=== PATIENT | female | born 1955 | race Caucasian/White ===

== ENCOUNTER → 2019-10-14 12:03 | Outpatient (BNVA) | payer MEDICARE, SELFPAY | PROVIDERS: Family Provider Nurse Practitioner; PCP Nurse Practitioner; Visit Provider Nurse Practitioner | DX: I10 Essential (primary) hypertension (principal); Z12.31 Encounter for screening mammogram for malignant neoplasm of breast | CPT/HCPCS: 80053; 80061; 81001; 81003; 85025 ==

== ENCOUNTER → 2020-04-13 11:11 | Outpatient (BNVA) | payer MEDICARE, SELFPAY | PROVIDERS: Family Provider Nurse Practitioner; PCP Nurse Practitioner; Visit Provider Nurse Practitioner | DX: I10 Essential (primary) hypertension (principal) | CPT/HCPCS: 80053; 80061; 84443 ==

== ENCOUNTER → 2020-07-27 16:55 | Outpatient (BNVA) | payer MEDICARE, SELFPAY | PROVIDERS: Family Provider Nurse Practitioner; PCP Nurse Practitioner; Visit Provider Nurse Practitioner | DX: I10 Essential (primary) hypertension (principal); I27.20 Pulmonary hypertension, unspecified; I48.91 Unspecified atrial fibrillation | CPT/HCPCS: 80053; 80061; 84443; 85025 ==

== ENCOUNTER 2020-09-22 23:22 | Emergency (ER) | payer MEDICARE, SELFPAY ==
[2020-09-22 23:27] VITALS: BP 178/88; PULSE 81; RESP 18; TEMP 36; O2SAT 100; BMI 29.1
--- NOTE | 2020-09-23 00:06 | XRR_ITS ---
PROCEDURE INFORMATION: Exam: XR Left Ankle Exam date and time: 09/23/2020 12:16 AM Age: 65 years old Clinical indication: Injury or trauma; Fall; Blunt trauma; Ankle; Left; Injury date: 09/23/20; Additional info: Injury, felt a pop. Pain in lt ankle with swelling TECHNIQUE: Imaging protocol: XR Left ankle. Views: 3 or more views. COMPARISON: No relevant prior studies available. FINDINGS: Bones/joints: There is a trimalleolar fracture of the left ankle. There is a mild posterior subluxation of the talus. Soft tissues: Normal. XR/XR ankle LT min 3V* [id number] IMPRESSION: Acute trimalleolar fracture of the left with mild posterior subluxation of the talus.
--- NOTE | 2020-09-23 00:23 | ED_ITS ---
HPI - Extremity Problem General: Chief complaint: Extremity Injury, Lower Stated complaint: left ankle injury Time Seen by Provider: 09/23/20 00:23 Source: patient Mode of arrival: ambulatory Limitations: no limitations History of Present Illness: HPI Narrative: 65-year-old female comes in today with injury to the left lower leg/ankle. Patient states she was getting up to get out of a rocking chair and a grandchild was playing with her and she missed stepped causing her to stepped awkwardly onto her ankle and feeling a significant pop. Patient appears well. Patient appears in moderate pain at rest. MD Complaint: extremity pain Review of Systems General: Reports: 10 or more systems reviewed and unremarkable except in HPI and below Musc: Reports: extremity pain [facility] ED PFSH: Medical History (Updated 09/23/20 @ 00:45 by ALEX Cheatham) AF (atrial fibrillation) ASD (atrial septal defect) Essential (primary) hypertension Pulmonary hypertension, unspecified Situational anxiety Surgical History History of heart valve repair 05/21/2017 Status post laser cataract surgery Both eyes 2012 Family History Brother Heart disease Sister Thyroid condition Lymphoma Daughter Melanoma Social History Smoking and tobacco status: never smoked Smoking risk assessment/counseling performed?: No Alcohol intake: current Alcohol intake frequency: holidays/special occasions only Desire information about alcohol rehabilitation?: No Counseling given: No Desire information about substance/drug rehabilitation?: No Counseling given: No Adopted: No Caregiver/support person: No Lives independently: Yes Household members: spouse Housing: House Marital status: Number of children: 3 Number of grandchildren: 6 Highest education level completed: High School Graduate service: No Current occupational status: unemployed Current occupational exposures/hazards: No Pets and animals: No History of recent travel: No Sexually active: Yes Current gender identity: Female Financial difficulty paying for basics: Not Very Hard Physical Exam Const: COMMON NORMALS: no acute distress and patient oriented x3 GENERAL APPEARANCE: cooperative HENMT: COMMON NORMALS: normocephalic and Normal external nose present HEAD & SCALP: normal to inspection and normocephalic NOSE: Normal external nose present MOUTH: Normal oral and palatal mucosa present Eye: GENERAL EYE: appearance normal, both eyes and all related structures Neck/C-Spine: COMMON NORMALS: full ROM Chest: COMMONS NORMALS: normal inspection of the chest Resp: COMMON NORMALS: normal respiratory effort EFFORT & INSPECTION: Yes able to speak in complete sentences Cardio: COMMON NORMALS: regular rate and regular rhythm RATE: regular rate RHYTHM: regular rhythm GI: COMMON NORMALS: non-tender Back/Pelvis: COMMON NORMALS: thoracic and lumbar spine normal to inspection Extremity: NARRATIVE EXTREMITY EXAM: Significant swelling and ecchymosis to the left lower extremity. Pulses are intact. Prompt capillary refill is noted. Neuro: COMMON NORMALS: patient oriented x3 and moves all extremities Psych: COMMON NORMALS: mental status grossly normal and cooperative Skin: COMMON NORMALS: no rashes or lesions noted GENERAL SKIN EXAM: no rashes or lesions noted Procedures Orthopedic Splinting/Casting Injury #1: Side: left Lower Extremity Injury Location: ankle Lower Extremity Immobilizer: posterior splint (posterior splint with stirrup support) Other Orthopedic Equipment: crutches Course ED course: 1240, discussed with Dr. Yoon regarding patient's abnormal ankle x- ray. We note a trimalleolar fracture with minimal subluxation. He recommended splinting in the posterior medial lateral splint and following up with orthopedic surgeon. Vital Signs: Vital signs: Vital Signs Temperature 96.8 F L 09/22/20 23:27 Pulse Rate 81 09/22/20 23:27 Respiratory Rate 18 09/22/20 23:27 Blood Pressure 178/88 09/22/20 23:27 Pulse Oximetry 100 09/22/20 23:27 MDM - Extremity (Nontraumatic) MDM Narrative: Medical decision making narrative: Patient comes in today with injury to the left lower extremity. Patient appears well. Patient appears no acute distress. Respirations are even lungs are clear to auscultation. Noticeable deformity and swelling is noted to the left ankle. Distal pulses and cap refill are intact. Differential diagnosis includes dislocation, fracture, sprain. X-ray notes a trimalleolar fracture. Reviewed the exam with Dr. Yoon who recommended a PML splint and follow-up with orthopedics. Patient was given hydrocodone for pain. Case management will be consulted for follow-up appointment. Patient and family both reported understanding. Discharge Plan Discharge Patient Disposition: Home Clinical Impression: Closed trimalleolar fracture Qualifiers: Encounter type: initial encounter Laterality: left Qualified Code(s): S82.852A - Displaced trimalleolar fracture of left lower leg, initial encounter for closed fracture Condition: Stable Prescriptions: [place] 7.5-325 mg tablet 1 tab PO Q6H PRN (Reason: pain) Qty: 20 RF: 0 No Action nitroglycerin [Nitrostat] 0.4 mg tablet, sublingual 0.4 mg SUBLINGUAL ONCE PRNRF: 0 lisinopril 5 mg tablet 5 mg PO QDAY Qty: 90 RF: 0 furosemide 40 mg tablet 40 mg PO QAM Qty: 90 RF: 0 potassium chloride 20 mEq tablet extended release 20 meq PO QDAY Qty: 90 RF: 0 metoprolol succinate [Toprol XL] 25 mg tablet extended release 24 hr 12.5 mg PO DAILY Qty: 90 RF: 0 Eliquis 5 mg tablet 5 mg PO BID Qty: 180 RF: 0 Discharge Orders: Discharge ED (Routine); Ordered 09/23/20 Ordered By: Modesto Casey Referrals: Rosa Briseno, WALDEMAR [Primary Care Provider] - Discharge Diet: Usual diet Discharge Activity: Limit activity as instructed and Use walker/crutches as instructed Patient Instructions: Ankle Fracture (ED) Activity Restrictions/Additional Instructions: You will need to follow-up with orthopedic surgeon next week. Case management has been consulted to assist with your appointment. You can call the orthopedics office to arrange appointment but you will still receive a call from case management on Friday. Drink plenty of water with medication. Hydrocodone is a narcotic and may cause constipation. It is recommended to use a stool softener and drink a diet high in fresh fruits and vegetables to help prevent constipation. Follow-up with primary care as needed. Return to the emergency department for new concerns. Coding Level of Care Code ED Exterior Work Helper for Fabienne Benitez Exam Comprehensive
[2020-09-23] MEDS: HYDROcodone-acetaminophen 10-325 mg Tablet 1 TAB PO (00:38)
[2020-09-23] MEDS: HYDROcodone-acetaminophen 7.5-325 mg Tablet 1 TAB PO (02:03)
--- NOTE | 2020-09-23 02:13 | PC.NURSE ---
Posterior short leg splint with sugar tong applied to left ankle/foot. Patient tolerated it well but unable to bend foot at 90 degree angle.
[2020-09-23 02:14] VITALS: BP 148/93; PULSE 82; RESP 17; TEMP 36.6; O2SAT 100
--- NOTE | 2020-09-25 09:44 | DCPLANNER ---
information systems security manager had message to schedule a follow up appointment for patient with ortho. information systems security manager called the ortho clinic, spoke with Indira, gave clinic patients information. information systems security manager was told that patients information would be printed and reviewed. Clinic will call patient with appointment information.
--- NOTE | 2020-09-26 07:30 | DCPLANNER ---
Patient has a follow up appointment scheduled for Saturday, September 26, 2020 at 9:[address] Cruz. Clinic will call patient with appointment information.
--- NOTE | 2020-10-27 14:55 | DCPLANNER ---
Patient had a follow up appointment scheduled for 09.26.20 with ortho - patient did attend appointment.
== END 2020-09-23 02:18 | disposition home or self-care (01) ==
PROVIDERS: Emergency Provider Nurse Practitioner Family; PCP Nurse Practitioner
DX: S82.852A Displaced trimalleolar fracture of left lower leg, initial encounter for closed fracture (principal); Z79.01 Long term (current) use of anticoagulants; I48.91 Unspecified atrial fibrillation; I10 Essential (primary) hypertension; W18.40XA Slipping, tripping and stumbling without falling, unspecified, initial encounter
CPT/HCPCS: 12345; 29515; 73610; 99281; 99283; E0114

== ENCOUNTER → 2020-09-26 09:04 | Outpatient (BNVA) | payer MEDICARE, SELFPAY | PROVIDERS: PCP Nurse Practitioner; Referring Provider Nurse Practitioner Family; Visit Provider Podiatrist Foot & Ankle Surgery | DX: S82.852A Displaced trimalleolar fracture of left lower leg, initial encounter for closed fracture (principal); W18.40XA Slipping, tripping and stumbling without falling, unspecified, initial encounter; Z46.89 Encounter for fitting and adjustment of other specified devices; S82.852D Displaced trimalleolar fracture of left lower leg, subsequent encounter for closed fracture with routine healing; X58.XXXD Exposure to other specified factors, subsequent encounter | CPT/HCPCS: 73610; 87635; L4361 ==

== ENCOUNTER 2020-09-26 10:16 | Outpatient (CLI) | payer MEDICARE, SELFPAY | END 2020-09-26 10:17 | disposition home or self-care (01) | LOC: SPT 10:17 | PROVIDERS: PCP Nurse Practitioner; Visit Provider Podiatrist Foot & Ankle Surgery | DX: Z46.89 Encounter for fitting and adjustment of other specified devices (principal); S82.852D Displaced trimalleolar fracture of left lower leg, subsequent encounter for closed fracture with routine healing; X58.XXXD Exposure to other specified factors, subsequent encounter | CPT/HCPCS: 87635; L4361 ==

== ENCOUNTER 2020-09-29 06:53 | Day surgery (SDC) | payer OTHER, SELFPAY ==
[2020-09-28 12:37] VITALS: BMI 30.1
[2020-09-29] VITALS (7 sets, daily range): BP systolic 131–180; BP diastolic 70–88; PULSE 66–95; RESP 15–20; TEMP 36.6–37.1; O2SAT 94–100
--- NOTE | 2020-09-29 | SCC_ITS ---
Procedure Done: Open reduction internal fixation left trimalleolar ankle fracture. CPT code 14881 117 seconds of fluoroscopic guidance, for a cumulative dose of 2.9 mGy, was provided to Dr. Cruz by the radiology department. C-arm images of the LEFT ankle were saved for the patient's permanent record. [facility]
[2020-09-29] MEDS: sodium chloride 0.9% 1,000 ML 30 ML IV (08:09)
--- NOTE | 2020-09-29 08:23 | ANES.PREANE2 ---
Pre-Anesthetic Assessment Pre-Anesthetic Assessment: Height/Weight: Height 1.65 m Weight 82.1 kg Temp Pulse Resp BP Pulse Ox 98.1 F 79 18 137/74 98 09/29/20 07:24 09/29/20 07:24 09/29/20 07:24 09/29/20 07:24 09/29/20 07:24 Preop Diagnosis: Left trimalleolar ankle fracture Proposed Procedure: Operation Date: 09/29/20 09:10 Proposed Procedures [place] [address] S82.852A(Left) - Gm Cruz, DPM Was Beta Gia taken within 24 hours: Yes Last intake: Intake Last Liquid Date 09/28/20 Last Liquid Time 22:00 Last Solid Date 09/28/20 Last Solid Time 21:30 Social: Social History: No alcohol and No tobacco Exam: Pre-Anes Outpt Exam: alert, oriented x 3 and clear to auscultation bilaterally Airway: Submandibular: WNL Cervical ROM: WNL MP: 2 Dentition: Full Pulmonary: Pulmonary: None reported CV/HEM: CV/HEM: HTN Comments: ASD repair, PHTN : : None reported Hepatic: Hepatic: None reported GI: GI: None reported Metabolic: Metabolic: None reported Musc/skel: Musc/skel: None reported Neuropsych: Neuropsych: None reported Anesthetic Plan: ASA status: 3 Anesthesia: General and Regional (specify below) Other: Popliteal blk Risk of > 500 ml blood loss (7ml/kg in children): No Meds/Allergies Current Medications: Current Medications Generic Name Dose Route Start Last Admin Trade Name Freq PRN Reason Stop Dose Admin Sodium Chloride 1,000 mls @ 30 ml s/hr 09/29/20 08:00 09/29/20 08:09 Sodium Chloride 0.9% IV 09/30/20 07:59 30 mls/hr .Q24H MELODY Administration PFSH Anesthesia PFSH: Medical History AF (atrial fibrillation) ASD (atrial septal defect) Essential (primary) hypertension Pulmonary hypertension, unspecified Situational anxiety Surgical History History of heart valve repair 05/21/2017 Status post laser cataract surgery Both eyes 2013 Family History Brother Heart disease Sister Thyroid condition Lymphoma Daughter Melanoma Social History Smoking and tobacco status: never smoked Smoking risk assessment/counseling performed?: No Alcohol intake: current Alcohol intake frequency: holidays/special occasions only Desire information about alcohol rehabilitation?: No Counseling given: No Desire information about substance/drug rehabilitation?: No Counseling given: No Adopted: No Caregiver/support person: No Lives independently: Yes Household members: spouse Housing: House Marital status: Number of children: 3 Number of grandchildren: 6 Highest education level completed: High School Graduate service: No Current occupational status: unemployed Current occupational exposures/hazards: No Pets and animals: No History of recent travel: No Sexually active: Yes Current gender identity: Female Financial difficulty paying for basics: Not Very Hard Data Anesthesia Cardiac Studies: No Data to Display
[2020-09-29] MEDS: midazolam 1 mg/mL INJ 5 ML 5 MG IVP (08:55)
--- NOTE | 2020-09-29 09:02 | W.PM.OPSUD ---
Surgery/Procedure H&P Update DATE OF PROCEDURE: September 29, 2020 DATE H&P PERFORMED: 08/30/20 H&P UPDATE INFORMATION: I have reviewed H&P completed within last 30 days, I have examined patient prior to procedure, No changes to prior documentation and H&P is in [facility] EMR on date indicated PREOP DIAGNOSIS: Left trimalleolar ankle fracture PLANNED PROCEDURE: Operation Date: 09/29/20 09:10 Proposed Procedures [place] [address] S82.852A(Left) - Gm Cruz DPM
--- NOTE | 2020-09-29 09:02 | PM.OP ---
Operative Report Date of procedure: September 29, 2020 Pre-op Diagnosis: Left trimalleolar ankle fracture Post-op diagnosis: same Post-op Findings: Displaced left trimalleolar ankle fracture. Procedure Done: Open reduction internal fixation left trimalleolar ankle fracture. CPT code 18819 Implants: Arthrex anatomical fibular plate. Arthrex 4.0 FT screw x2, Arthrex locking and nonlocking 3.0 millimeter screws at distal fibular plate, Arthrex 3.5 mm locking screws at proximal fibular plate. 2-0 Vicryl, 4-0 Vicryl, 4-0 nylon, skin toni. Specimens removed/disposition: None none Pathology: none sent Surgeon: Gm Cruz D.P.M. Ecosystem Ecology Professor: Aaron Anesthesia: General Estimated blood loss: Less than 10 mL Tourniquet time: See intraoperative documentation IV fluids: None Urine output: None Complications: None Findings: None Condition: stable Disposition: PACU Brief History: Ms. Escoto is a pleasant 65-year-old female who sustained a left trimalleolar ankle fracture at home, tripped over a rug. She has a posterior malleolus fracture that is greater than 30% of the ankle mortise with displacement, displaced fibular fracture and medial malleolus fracture. I discussed the radiographic and clinical findings and implications with patient and her at length and recommended open reduction and internal fixation of her left ankle trimalleolar fracture for stability, rigid internal fixation, anatomical alignment and capability of early range of motion postoperatively. Risks include pain, bleeding, numbness, infection, hardware failure, hardware irritation, delayed union, malunion, damage to adjacent soft tissue structures, the high likelihood of posttraumatic arthritis as a result of this injury even with anatomical reduction and internal fixation. Numbness, swelling, bruising, surgical site dehiscence, infection and need for further surgical intervention. Patient was interviewed preoperatively, informed consent is signed, I initialed patient's left leg, patient wishes to proceed and is aware of complications and risks. No guarantees written, expressed or implied. Procedure: Under mild sedation the patient was brought to the operating room and placed on the operating table in supine position. Of note patient had a popliteal block to the left lower extremity per anesthesia preoperatively. Timeout was performed. Anesthesia was then administered by the anesthesia service. 5 cc of 0.5% Marcaine plain utilized to block the saphenous nerve at the left lower extremity prior to scrubbing. Well-padded pneumatic tourniquet applied to the high calf on the left lower extremity. The left lower remedy was then scrubbed, prepped and draped utilizing normal aseptic technique. Left lower extremity was then examined a weighted utilizing a Esmarch bandage and the tourniquet was inflated to 250 mmHg. Attention was directed to the left ankle which was dorsiflexed and plantarflexed, utilizing traction distally and exaggerating the mechanism of injury followed by reverse mechanism of injury reduction the ankle mortise was inspected utilizing fluoroscopy both AP, mortise and lateral views. I was able to appreciate migration of the posterior fragment distally level with ankle mortise. After checking reduction noting this to be acceptable I proceeded with the patient in supine position. Palpation directly to the lateral malleolus at the distal tip this was marked with a skin marker with a linear incision proximal approximately 10 cm in length. Skin incision was made at the lateral malleolus utilizing a #15 blade. Dissection was carried down through subcutaneous tissue to the level of the periosteum utilizing blunt and sharp technique. Care was taken to retract and preserve neurovascular and tendinous structures. All bleeders were ligated and cauterized as necessary. The peroneal tendons were retracted posteriorly after inspection no tears appreciated. Utilizing a fresh 15 blade periosteal incision was performed, fracture was distracted utilizing [id number] reduction forceps at the lateral malleolus and evacuated of hematoma with curette, browns and saline flush. Fracture was reduced and temporarily stabilized utilizing [id number] reduction forceps followed by fixation of the distal fibula utilizing a anatomical fibular plate and standard AO technique. Distal plate was filled utilizing a combination of locking and nonlocking Arthrex 3.0 millimeter screws followed by fixation of the proximal plate utilizing locking 3.5 millimeter screws with excellent bony apposition and compression noted. Fibula is out to length and the rotated this was confirmed with direct visitation as well as intraoperative fluoroscopy in all 3 views. Incision site was flushed with copious amounts of sterile saline solution. Attention was then directed to the medial malleolus where a percutaneous screw fixation was performed utilizing Arthrex 4.0 mm headless compression screw x2 in parallel fashion with reduction of the medial malleolus performed in a closed fashion and fixation noted to be excellent with excellent bony compression and positioning of fracture fragment and congruent ankle mortise on the AP and lateral as well as oblique view appreciated. Next a lateral view was utilized to confirm reduction of the posterior malleolus fracture this was accomplished utilizing ligamentotaxis. Posterior malleolus fracture was fixated utilizing standard AO technique from an anterior to posterior fashion utilizing lag technique with a 4.0 mm partially-threaded cannulated headed screw. Excellent bony apposition compression noted and fixation noted to be acceptable on AP, mortise and lateral views not to violate the ankle mortise. Incision sites were flushed with copious amounts of sterile saline solution. Lateral incision periosteum was reapproximated utilizing 2-0 Vicryl, subcutaneous tissue closed utilizing 4-0 Vicryl and skin reapproximated utilizing skin toni. Percutaneous incision at the anterior ankle and medial were reapproximated utilizing 4-0 nylon. Incision sites were dressed with Adaptic, sterile 4 x 4, Kerlix and Daryl wrap followed by application of cam boot with ankle in neutral position. Tourniquet was deflated and a prompt hyperemic response was noted to the distal digits of the left lower extremity. Patient tolerated the procedure well and was transferred to the PACU with vital signs stable and vascular status intact. Following a period of postoperative monitoring she will be discharged home is to remain strict nonweightbearing elevate her left foot at all times while at rest. She has instructions in specific detail on discharge paperwork as well as follow-up. Was also provided my cell phone numbers to contact me with any postoperative questions or concerns.
--- NOTE | 2020-09-29 09:04 | ANES.PROC ---
Anesthesia Procedures Procedure/Date: 09/29/20 Nerve Block ^: Nerve Block 1: Main Anesthesia: general anesthesia Time Out Performed: Yes Consent: requested by attending/covering physician, from patient, risks and benefits reviewed and patient agrees to proceed Nerve block location: popliteal (left) Anesthesia monitors applied: pulse oximetry, EKG, BP cuff and oxygen Nerve block position: lateral Anesthetic Used: ropivicaine 0.5% and with epi Amount of anesthesia used (mL): 30 Ultrasound used to: recognize landmarks Nerve Stimulator Used?: No Interscalene/Femoral BLK: 4 stimuplex 21 g needle used for position and inplane approach and visualize local anesthetic spread Injection: neg aspiration of heme Patient Tolerated Procedure: well Complications: none
--- NOTE | 2020-09-29 11:30 | XR_ITS ---
WS: [id number] Left ankle, 3 views, 09/29/2020 Clinical Data: post op Comparison: Left ankle, 09/26/2020. Findings: There is a lateral plate applied to the distal fibula with multiple orthopedic screws. There are obli que screws reducing the medial malleolar fracture. There is a transverse screw across the distal tibi a. Surgical toni are adjacent to the lateral subcutaneous tissue. XR/XR ankle LT min 3V* [id number] Impression: Internal fixation of trimalleolar fracture.
--- NOTE | 2020-09-29 11:40 | SUR.PHASEI ---
PT AWAKES AND ORAL AIRWAY OUT PT QUICKLY BACK TO SLEEP WITH GOOD RESP EFFORT NOTED. VSS LT FOOT IN BOOT DRESSING D/I WITH DISTAL TOES PINK WITH CAP REFILL LESS THAN 3 SECONDS.
--- NOTE | 2020-09-29 11:50 | SUR.PHASEII ---
Dr. Cruz requested that I give pt norco 10-325 mg upon arrival to phase II of PACU.
[2020-09-29] MEDS: HYDROcodone-acetaminophen 10-325 mg Tablet 1 TAB PO (12:13)
--- NOTE | 2020-09-29 12:47 | ANE.PACU2 ---
Inpatient post-anesthesia follow up: Airway intact: Yes Vital signs: Temperature 98.8 F Pulse Rate 88 Respiratory Rate 18 Blood Pressure 149/75 Pulse Oximetry 94 Oxygen Delivery Me thod Room Air Oxygen Flow Rate 8 Fraction of Inspir ed Oxygen Hydration adequate: Yes Nausea and vomiting: No Pain level: 2 Mental status: Baseline
== END 2020-09-29 13:11 | disposition home or self-care (01) ==
PROVIDERS: PCP Nurse Practitioner; Visit Provider Podiatrist Foot & Ankle Surgery
PROC: (CPT 27823; principal; 2020-09-29 09:10)
DX: S82.852A Displaced trimalleolar fracture of left lower leg, initial encounter for closed fracture (principal); X58.XXXA Exposure to other specified factors, initial encounter; I10 Essential (primary) hypertension
CPT/HCPCS: 27823; 12345; 64450; 73610; 76000; 96374; C1713; J0330; J0690; J2250; J2405; J2704; J2795; J3010; J3490; J7030

== ENCOUNTER → 2020-10-13 14:47 | Outpatient (BNVA) | payer OTHER, SELFPAY | PROVIDERS: PCP Nurse Practitioner; Visit Provider Podiatrist Foot & Ankle Surgery | DX: S82.852A Displaced trimalleolar fracture of left lower leg, initial encounter for closed fracture (principal); X58.XXXA Exposure to other specified factors, initial encounter | CPT/HCPCS: 73610 ==

== ENCOUNTER → 2020-11-06 11:09 | Outpatient (BNVA) | payer OTHER, SELFPAY | PROVIDERS: PCP Nurse Practitioner; Visit Provider Podiatrist Foot & Ankle Surgery | DX: S82.852A Displaced trimalleolar fracture of left lower leg, initial encounter for closed fracture (principal) | CPT/HCPCS: 73610 ==

== ENCOUNTER → 2020-11-20 10:41 | Outpatient (BNVA) | payer OTHER, SELFPAY | PROVIDERS: PCP Nurse Practitioner; Visit Provider Podiatrist Foot & Ankle Surgery | DX: S82.852D Displaced trimalleolar fracture of left lower leg, subsequent encounter for closed fracture with routine healing (principal); Z98.890 Other specified postprocedural states; W18.40XD Slipping, tripping and stumbling without falling, unspecified, subsequent encounter | CPT/HCPCS: 73610 ==

== ENCOUNTER → 2020-12-13 10:25 | Outpatient (BNVA) | payer OTHER, SELFPAY | PROVIDERS: PCP Nurse Practitioner; Visit Provider Podiatrist Foot & Ankle Surgery | DX: S82.852A Displaced trimalleolar fracture of left lower leg, initial encounter for closed fracture (principal) | CPT/HCPCS: 73610 ==

== ENCOUNTER → 2021-01-03 10:54 | Outpatient (BNVA) | payer OTHER, SELFPAY | PROVIDERS: PCP Nurse Practitioner; Visit Provider Podiatrist Foot & Ankle Surgery | DX: S82.852A Displaced trimalleolar fracture of left lower leg, initial encounter for closed fracture (principal); X58.XXXA Exposure to other specified factors, initial encounter | CPT/HCPCS: 73610 ==

== ENCOUNTER 2021-01-03 14:25 | Outpatient (CLI) | payer OTHER, SELFPAY | END 2021-01-03 14:26 | disposition home or self-care (01) | LOC: SPT 14:25 | PROVIDERS: PCP Nurse Practitioner; Visit Provider Podiatrist Foot & Ankle Surgery | DX: Z46.89 Encounter for fitting and adjustment of other specified devices (principal); S82.852D Displaced trimalleolar fracture of left lower leg, subsequent encounter for closed fracture with routine healing; X58.XXXD Exposure to other specified factors, subsequent encounter | CPT/HCPCS: L1902 ==

== ENCOUNTER → 2021-02-05 11:16 | Outpatient (BNVA) | payer OTHER, MEDICARE, SELFPAY | PROVIDERS: PCP Nurse Practitioner; Visit Provider Podiatrist Foot & Ankle Surgery | DX: S82.852D Displaced trimalleolar fracture of left lower leg, subsequent encounter for closed fracture with routine healing (principal); W18.40XD Slipping, tripping and stumbling without falling, unspecified, subsequent encounter; Z98.890 Other specified postprocedural states; L97.322 Non-pressure chronic ulcer of left ankle with fat layer exposed | CPT/HCPCS: 73610 ==

== ENCOUNTER → 2021-02-21 10:56 | Outpatient (BNVA) | payer OTHER, MEDICARE, SELFPAY | PROVIDERS: PCP Nurse Practitioner; Visit Provider Nurse Practitioner | DX: I10 Essential (primary) hypertension (principal) | CPT/HCPCS: 80053; 80061; 84443; 85025 ==

== ENCOUNTER → 2021-03-07 11:07 | Outpatient (BNVA) | payer OTHER, MEDICARE, SELFPAY | PROVIDERS: PCP Nurse Practitioner; Visit Provider Podiatrist Foot & Ankle Surgery | DX: S82.852A Displaced trimalleolar fracture of left lower leg, initial encounter for closed fracture (principal); X58.XXXA Exposure to other specified factors, initial encounter; Z98.890 Other specified postprocedural states | CPT/HCPCS: 73610 ==

== ENCOUNTER → 2021-08-28 10:23 | Outpatient (BNVA) | payer SELFPAY | PROVIDERS: PCP Nurse Practitioner; Visit Provider Dermatology | DX: Z01.89 Encounter for other specified special examinations (principal) ==

== ENCOUNTER → 2022-01-10 08:57 | Outpatient (BNVA) | payer OTHER, MEDICARE, SELFPAY | PROVIDERS: PCP Nurse Practitioner; Visit Provider Nurse Practitioner | DX: I48.91 Unspecified atrial fibrillation (principal); I10 Essential (primary) hypertension | CPT/HCPCS: 80053; 80061; 85025 ==

== ENCOUNTER → 2022-04-09 09:33 | Outpatient (BNVA) | payer OTHER, SELFPAY | PROVIDERS: PCP Nurse Practitioner; Visit Provider Nurse Practitioner | DX: I10 Essential (primary) hypertension (principal); I48.91 Unspecified atrial fibrillation; N95.2 Postmenopausal atrophic vaginitis | CPT/HCPCS: 80053; 80061 ==

== ENCOUNTER → 2022-10-03 12:17 | Outpatient (BNVA) | payer OTHER, SELFPAY | PROVIDERS: PCP Nurse Practitioner; Visit Provider Nurse Practitioner | DX: I10 Essential (primary) hypertension (principal); I48.91 Unspecified atrial fibrillation; N95.2 Postmenopausal atrophic vaginitis | CPT/HCPCS: 80053; 80061; 81000; 84443; 85025 ==

== ENCOUNTER 2022-10-24 13:05 | Outpatient (CLI) | payer OTHER, SELFPAY ==
--- NOTE | 2022-10-24 13:14 | MM_ITS ---
WS: [id number] BILATERAL 3D TOMOSYNTHESIS DIGITAL SCREENING MAMMOGRAPHY WITH CAD CLINICAL INFORMATION: Z12.39 - Encounter for other screening for malignant neop... HISTORY: Screening mammogram. No current complaints. COMPARISON: None. TECHNIQUE: Bilateral CC and MLO views. FINDINGS: Scattered fibroglandular densities bilaterally. No suspicious focal mass, asymmetry, calcifications, or architectural distortion. No evidence of malignancy. Vascular calcifications. MM/[place] [id number] IMPRESSION: BI-RADS: 2-Benign FOLLOW UP: 1 Year Follow-up Recommend return to annual screening mammography.
== END 2022-10-24 13:06 | disposition home or self-care (01) ==
LOC: RAD 13:09
PROVIDERS: PCP Nurse Practitioner; Visit Provider Nurse Practitioner
DX: Z12.31 Encounter for screening mammogram for malignant neoplasm of breast (principal)
CPT/HCPCS: 77063; 77067

== ENCOUNTER → 2023-09-02 16:22 | Outpatient (BNVA) | payer OTHER, SELFPAY | PROVIDERS: PCP Nurse Practitioner; Visit Provider Nurse Practitioner | DX: I48.91 Unspecified atrial fibrillation (principal); I10 Essential (primary) hypertension | CPT/HCPCS: 80053; 80061; 85025 ==

== ENCOUNTER 2023-10-28 10:02 | Outpatient (CLI) | payer MEDICARE, SELFPAY ==
--- NOTE | 2023-10-28 10:00 | MM_ITS ---
WS: [id number] BILATERAL 3D TOMOSYNTHESIS DIGITAL SCREENING MAMMOGRAPHY WITH CAD CLINICAL INFORMATION: Z12.31 - Encounter for screening mammogram for malignant ... HISTORY: Screening mammogram. No current complaints. COMPARISON: 10/24/2022 TECHNIQUE: Bilateral CC and MLO views. FINDINGS: Scattered fibroglandular densities bilaterally. No suspicious focal mass, asymmetry, calcifications, or architectural distortion. No evidence of malignancy. Vascular calcification. IMPRESSION: MM/[place] [id number] BI-RADS: 2-Benign FOLLOW UP: 1 Year Follow-up Recommend return to annual screening mammography.
== END 2023-10-28 10:03 | disposition home or self-care (01) ==
LOC: MOBLMAM 10:08
PROVIDERS: PCP Nurse Practitioner; Visit Provider Nurse Practitioner
DX: Z12.31 Encounter for screening mammogram for malignant neoplasm of breast (principal); R92.323 Mammographic fibroglandular density, bilateral breasts
CPT/HCPCS: 77063; 77067

== ENCOUNTER 2024-01-19 11:30 | Outpatient (CLI) | payer MEDICARE, SELFPAY ==
--- NOTE | 2024-01-19 11:41 | XRR_ITS ---
PROCEDURE INFORMATION: Exam: XR Right Hip Exam date and time: 01/19/2024 11:53 AM Age: 68 years old Clinical indication: Hip pain; Right hip; Additional info: M54.50 - low back pain, unspecified TECHNIQUE: Imaging protocol: Radiologic exam of the right hip. Views: 1 view hip with pelvis when performed. COMPARISON: No relevant prior studies available. FINDINGS: Bones/joints: Unremarkable. No acute fracture. Soft tissues: Unremarkable. XR/XR hip RT 2-3V wo/w pel* [id number] IMPRESSION: No acute findings.
--- NOTE | 2024-01-19 11:41 | XRR_ITS ---
PROCEDURE INFORMATION: Exam: XR Lumbosacral Spine Exam date and time: 01/19/2024 11:53 AM Age: 68 years old Clinical indication: Low back pain; Patient HX: Pain in lower back and right hip for 4 weeks; Additional info: M54.50 - low back pain, unspecified TECHNIQUE: Imaging protocol: Radiologic exam of the lumbosacral spine. Views: 2 or 3 views. COMPARISON: No relevant prior studies available. FINDINGS: Bones/joints: No fracture or other acute abnormality. The bones are demineralized. There is a minimal dextrocurvature. Sagittal alignment is normal. Disc spaces are normal. Minor multilevel hypertrophic changes are seen. Soft tissues: Unremarkable. XR/XR lumbar spine 2-3V* [id number] IMPRESSION: Nonacute findings.
== END 2024-01-19 11:31 | disposition home or self-care (01) ==
PROVIDERS: PCP Nurse Practitioner; Visit Provider Nurse Practitioner Family
DX: M54.50 Low back pain, unspecified (principal)
CPT/HCPCS: 72100; 73502; 80053; 81000; 82306; 85025

== ENCOUNTER 2024-01-28 12:33 | Outpatient (CLI) | payer MEDICARE, SELFPAY ==
--- NOTE | 2024-01-28 13:00 | MR_ITS ---
WS: [id number] MRI LUMBAR SPINE NONCONTRAST HISTORY: M54.50 - Low back pain, unspecified COMPARISON: Radiograph 01/19/2024 TECHNIQUE: Sagittal and axial multisequence imaging is submitted. Mild compression deformity involving the superior endplate of L4 with a small amount of edema. These changes were not apparent on the recent lumbar radiograph of 01/19/2024. The remaining vertebral bodies are normal. Normal lumbar alignment. Disc spaces and vertebral body heights are well-preserved. Conus terminates normally at L1-2 disc level. L1-L2: Mild facet arthritis. Very shallow LEFT paracentral disc protrusion. No stenosis. L2-L3: Diffuse annular disc bulging with mild ligamentum flavum and facet arthritis. Mild encroachmen t upon the subarticular recesses and traversing L3 nerve roots. Mild foraminal narrowing. L3-L4: Mild annular disc bulging with osteophytic ridging, ligamentum flavum and facet arthritis. Abner tral and bilateral subarticular recess encroachment and mild RIGHT foraminal stenosis. L4-L5: Diffuse annular disc bulging encroaching upon the ventral thecal sac and subarticular recesses . Disc contacts the traversing L5 nerve roots. Mild central and bilateral subarticular recess and mod erate foraminal stenosis, RIGHT greater than LEFT. L5-S1: Mild annular disc bulging. Very shallow central disc protrusion contacts the RIGHT S1 nerve ro ot. Moderate LEFT and mild RIGHT foraminal stenosis. Paravertebral soft tissues are normal. Numerous small stones in the gallbladder. There is a stone in the gallbladder neck. MR/MR lumbar spine wo con* [id number] IMPRESSION: 1. Mild compression fracture with marrow edema involving the superior endplate of L4. Acute to subacute fracture without retropulsion. 2. L3-4: Disc encroachment upon the ventral thecal sac. Mild central, bilatera l subarticular recess and RIGHT foraminal stenosis. Disc does contact the trave rsing L4 nerve roots. 3. L4-5: Mild central and bilateral subarticular recess. Moderate foraminal st enosis, RIGHT greater than LEFT. 4. L5-S1: Moderate LEFT and mild RIGHT foraminal stenosis. Very shallow centra l disc protrusion contacts the RIGHT S1 nerve root. 5. Mild foraminal stenosis at L2-3.
== END 2024-01-28 12:34 | disposition home or self-care (01) ==
LOC: RAD 12:33
PROVIDERS: PCP Nurse Practitioner; Visit Provider Nurse Practitioner Family
DX: M48.56XA Collapsed vertebra, not elsewhere classified, lumbar region, initial encounter for fracture (principal); M53.86 Other specified dorsopathies, lumbar region; R68.89 Other general symptoms and signs; R26.9 Unspecified abnormalities of gait and mobility; M48.061 Spinal stenosis, lumbar region without neurogenic claudication; M48.07 Spinal stenosis, lumbosacral region; M47.896 Other spondylosis, lumbar region
CPT/HCPCS: 72148

== ENCOUNTER → 2024-02-10 10:58 | Outpatient (BNVA) | payer MEDICARE, SELFPAY | PROVIDERS: PCP Nurse Practitioner; Referring Provider Nurse Practitioner Family; Visit Provider Orthopaedic Surgery | DX: M54.9 Dorsalgia, unspecified (principal) | CPT/HCPCS: 99204 ==

== ENCOUNTER 2024-02-13 10:33 | Outpatient (CLI) | payer MEDICARE, SELFPAY ==
[2024-02-13 11:10] LABS: Add Urine Microscopic? NO; Charge for UA Resulting for Rev
[2024-02-13 11:13] LABS: Basophils % 0.7 %; Eosinophils # 0.1 10^3/uL (0.0-0.8); Eosinophils % 1.1 %; Lymphocytes # 0.8 10^3/uL (0.8-4.8); Lymphocytes % 13.6 %; Mean Corpuscular HGB Conc 31.4 g/dL (30-55); Mean Corpuscular Hemoglobin 29.8 pg (27-33); Mean Corpuscular Volume 94.9 fl (85-98); Mean Platelet Volume 9.5 fL (7.4-10.4); Monocytes # 0.4 10^3/uL (0.2-0.9); Monocytes % 7.1 %; Neutrophils # 4.23 10^3/uL (1.8-7.7); Nucleated Red Blood Cells % 0 %; Platelet Count 403 10^3/cmm (157-399); Red Blood Count 3.69 10^6/uL (3.85-5.65); Red Cell Distribution Width 16.6 % (12.1-15.1)
[2024-02-13 11:37] LABS: Alanine Aminotransferase 21 U/L (0-33); Albumin Level 4.1 g/dL (3.5-5.2); Alkaline Phosphatase 76 U/L (35-105); Anion Gap 14.8 (5-19); Aspartate Amino Transferase 20 U/L (0-32); Blood Urea Nitrogen 18 mg/dL (8-23); Calcium 9.4 mg/dL (8.5-10.5); Carbon Dioxide 26 mmol/L (22-29); Chloride 100 mmol/L (98-107); Globulin 3.1 g/dL (1.3-4.6); Glomerular Filtration Rate 54.8 mL/min (90-130); Glucose 103 mg/dL (65-115); Osmolality Calculated 284 mOsm/kg (285-295); Potassium 4.8 mmol/L (3.5-5.1); Sodium 136 mmol/L (136-145); Total Bilirubin 0.5 mg/dL (0.15-1.2); Total Protein 7.2 g/dL (6.6-8.7)
[2024-02-13 11:47] LABS: Bilirubin Urine Neg (Negative); Blood Urine Neg (Negative); Glucose Urine UA Norm (Normal); Ketones Urine Negative (Negative); Leukocyte Esterase Urine Negative (Negative); Nitrate Urine Negative (Negative); Protein Urine Neg (Negative); Specific Gravity, Urine 1.005 (1.005-1.030); Urine Appearance Clear (CLEAR); Urine Color Yellow (Yellow); Urobilinogen Urine Norm (Negative); pH Urine 7 (5-7)
== END 2024-02-13 10:34 | disposition home or self-care (01) ==
LOC: LAB 10:35
PROVIDERS: PCP Nurse Practitioner; Visit Provider Orthopaedic Surgery
DX: S32.000A Wedge compression fracture of unspecified lumbar vertebra, initial encounter for closed fracture (principal); X58.XXXA Exposure to other specified factors, initial encounter
CPT/HCPCS: 80053; 81003; 85025

== ENCOUNTER → 2024-02-18 09:15 | Outpatient (BNVA) | payer MEDICARE, SELFPAY | PROVIDERS: PCP Nurse Practitioner; Visit Provider Podiatrist Foot & Ankle Surgery | DX: M79.671 Pain in right foot (principal); M54.16 Radiculopathy, lumbar region; Z01.818 Encounter for other preprocedural examination | CPT/HCPCS: 73630; 93005; 99213 ==

== ENCOUNTER → 2024-03-05 05:29 | Day surgery (SDC) | payer MEDICARE, SELFPAY ==
[2024-03-05] VITALS (8 sets, daily range): BP systolic 143–186; BP diastolic 72–97; PULSE 63–97; RESP 12–17; TEMP 36.1; O2SAT 95–100; BMI 29.9
--- NOTE | 2024-03-05 05:48 | SC_ITS ---
WS: [id number] INTRAOPERATIVE TECHNIQUE: 4 Spot fluoroscopic images for intraoperative purposes. FLUOROSCOPY TIME: 44.5 seconds CLINICAL INFORMATION: Surgery COMPARISON: None. FINDINGS: Fluoroscopy obtained for intraoperative purposes. L4 kyphoplasty. SC/C-arm FL for Kyphoplasty IMPRESSION: Images obtained for intraoperative purposes.
--- NOTE | 2024-03-05 06:36 | ANES.PREANE2 ---
Pre-Anesthetic Assessment Height/Weight: Height 1.65 m Weight 81.647 kg O2 Del Method Room Air 03/05/24 05:57 Preop Diagnosis: L4 wedge osteoporotic compression fracture Operation Date: 03/05/24 07:00 Proposed Procedures p Kyphoplasty L4 87716, S32.020A(Not Applicable) - Alonso Alvarez DO Last intake: Intake Last Liquid Date 03/04/24 Last Liquid Time 21:30 Last Solid Date 03/04/24 Last Solid Time 21:30 Social Alcohol (Holiday) and No tobacco Exam alert, oriented x 3 and clear to auscultation bilaterally Irreg R/R; no m, g, r's Airway Submandibular: within normal limits Cervical ROM: within normal limits Mallampati: Class II Pulmonary Pulmonary HTN CV/HEM Atrial Fibrillation and Hypertension Neuropsych Anxiety (Situational) Anesthetic Plan ASA status: 3 Anesthesia: General Medications/Allergies Home Medications Medication Instructions Recorded Confirmed Last Taken Type potassium chloride 20 mEq 20 meq PO QDAY take with Lasix #90 12/15/19 03/05/24 1 Day Ago Rx tablet,extended release tabs ~09/28/20 ASO to left ankle WBAT #1 ea 01/03/21 02/24/24 Unknown Rx estradiol 0.01% (0.1 mg/gram) 1 appful vaginal .weekly #42.5 01/05/24 03/05/24 Unknown Rx vaginal cream (Estrace) grams cyclobenzaprine 10 mg tablet 10 mg PO BID PRN muscle spasm #60 01/19/24 03/05/24 Unknown Rx tabs cholecalciferol (vitamin D3) 1,250 50,000 unit PO .once weekly #4 caps 01/21/24 03/05/24 02/26/24 Rx mcg (50,000 unit) capsule ondansetron HCl 4 mg tablet 4 mg PO Q6H PRN nausea and 02/10/24 03/05/24 Unknown Rx vomiting 30 days #90 tabs furosemide 40 mg tablet 40 mg PO QAM PRN swelling 02/18/24 03/05/24 Unknown History apixaban 5 mg tablet (Eliquis) 5 mg PO BID #60 tabs 02/24/24 03/05/24 03/02/24 19:00 Rx lisinopril 20 mg tablet 20 mg PO QDAY #90 tabs 06/08/0803/05/24 03/04/24 Rx metoprolol succinate 25 mg 12.5 mg (1/2 x 25 mg) PO DAILY #90 02/24/24 03/05/24 03/05/24 Rx tablet,extended release 24 hr tabs (Toprol XL) Allergies Allergy/AdvReac Type Severity Reaction Status Date / Time No Known Allergies Allergy Verified 03/05/24 05:55 [facility] Anesthesia Medical History Lumbar compression fracture Obesity (BMI 30.0-34.9) AF (atrial fibrillation) ASD (atrial septal defect) Essential (primary) hypertension Situational anxiety Pulmonary hypertension, unspecified Surgical History Status post laser cataract surgery Both eyes 2012 History of heart valve repair 05/21/2017 Family History Brother Heart disease Sister Thyroid disease Lymphoma Daughter Melanoma Social History Smoking and tobacco/nicotine status: never used tobacco/nicotine Alcohol intake: current Alcohol intake frequency: holidays/special occasions only Substance/Drug Use: never Adopted: No Caregiver/support person: No Lives independently: Yes Household members: spouse Housing: House Marital status: Number of children: 3 Number of grandchildren: 6 Highest education level completed: High School Graduate service: No Current occupational status: unemployed Current occupational exposures/hazards: No Pets and animals: No Sexually active: Yes Do you think of yourself as: Straight/Heterosexual Current gender identity: Female Data Anesthesia Cardiac Studies: No Data to Display
--- NOTE | 2024-03-05 06:37 | W.PM.OPSUD ---
Surgery/Procedure H&P Update DATE OF PROCEDURE: March 05, 2024 DATE H&P PERFORMED: 02/18/24 H&P UPDATE INFORMATION: I have reviewed H&P completed within last 30 days, I have examined patient prior to procedure and No changes to prior documentation PREOP DIAGNOSIS: L4 wedge osteoporotic compression fracture PLANNED PROCEDURE: Operation Date: 03/05/24 07:00 Proposed Procedures p Kyphoplasty L4 90027, S32.020A(Not Applicable) - Alonso Alvarez DO
[2024-03-05] MEDS: sodium chloride 0.9% 1,000 ML 30 ML IV (06:48)
[2024-03-05] MEDS: ceFAZolin 2,000 MG in sodium chloride 0.9% (plus) 50 ML 100 MG IV (07:07)
[2024-03-05] MEDS: lidocaine-epi 1% 20 mL INJ 10 ML INJECTION (07:31)
--- NOTE | 2024-03-05 07:51 | PM.OP ---
Operative Report Date of procedure: March 05, 2024 Pre-op diagnosis: L4 wedge osteoporotic traumatic compression fracture Post-op diagnosis: same Procedure done: L4 kyphoplasty Surgeon: Alonso Alvarez DO Estimated blood loss (mL): 5 Procedure: Patient will do a procedure after undergoing his he was placed in prone position. All his impingement well-padded. Patient from room also fashion. Skin incision made over the left lateral pedicle. Awl was inserted. This confirmed under AP lateral fluoroscopy. The drill was then inserted drill was removed. Balloon was inserted and balloon was inflated. Next tension was brought to the right side. Again this process repeated skin incision made all was inserted drill was inserted balloon was inserted. Next cement was inserted and both the right and left side. AP lateral fluoroscopy showed that the vertebral body had good fill of the cement. Once the cement was done tubes were pulled AP lateral fluoroscopy ensured the cement was in good position. Wounds irrigated and closed with nylon suture. Sterile dressings applied patient transferred to PACU in stable condition.
[2024-03-05] MEDS: HYDROcodone-acetaminophen 5-325 mg Tablet 1 TAB PO (08:40)
--- NOTE | 2024-03-05 09:16 | ANE.PACU2 ---
Inpatient post-anesthesia follow up: Airway intact: Yes Vital signs: Temperature 97.0 F Pulse Rate 72 Respiratory Rate 15 Blood Pressure 154/86 Pulse Oximetry 98 Oxygen Delivery Me thod Room Air Oxygen Flow Rate 4 Fraction of Inspir ed Oxygen Hydration adequate: Yes Nausea and vomiting: No Pain level: 2 Mental status: Baseline
== END | disposition home or self-care (01) ==
PROVIDERS: PCP Nurse Practitioner; Visit Provider Orthopaedic Surgery
PROC: (CPT 22514; principal; 2024-03-05 07:00)
DX: S32.040A Wedge compression fracture of fourth lumbar vertebra, initial encounter for closed fracture (principal); X58.XXXA Exposure to other specified factors, initial encounter; I27.20 Pulmonary hypertension, unspecified; I48.91 Unspecified atrial fibrillation; I10 Essential (primary) hypertension; E66.9 Obesity, unspecified; Z68.30 Body mass index [BMI] 30.0-30.9, adult
CPT/HCPCS: 22514; 76000; J0131; J0690; J1100; J2405; J2704; J2710; J3010; J3490; J7030

== ENCOUNTER → 2024-03-16 15:06 | Outpatient (BNVA) | payer MEDICARE, SELFPAY | PROVIDERS: PCP Nurse Practitioner; Visit Provider Orthopaedic Surgery | DX: M54.2 Cervicalgia (principal); S32.040D Wedge compression fracture of fourth lumbar vertebra, subsequent encounter for fracture with routine healing; X58.XXXD Exposure to other specified factors, subsequent encounter | CPT/HCPCS: 99213 ==

== ENCOUNTER → 2024-08-10 14:47 | Outpatient (BNVA) | payer MEDICARE, SELFPAY | PROVIDERS: PCP Nurse Practitioner; Visit Provider Nurse Practitioner | DX: E66.9 Obesity, unspecified (principal); I10 Essential (primary) hypertension; E55.9 Vitamin D deficiency, unspecified; I48.91 Unspecified atrial fibrillation; N95.2 Postmenopausal atrophic vaginitis | CPT/HCPCS: 80053; 80061; 82306; 84443 ==

== ENCOUNTER 2024-11-23 10:32 | Outpatient (CLI) | payer MEDICARE, SELFPAY ==
--- NOTE | 2024-11-23 10:40 | MM_ITS ---
WS: [id number] BILATERAL 3D TOMOSYNTHESIS DIGITAL SCREENING MAMMOGRAPHY WITH CAD CLINICAL INFORMATION: Z12.31 - Encounter for screening mammogram for malignant ... HISTORY: Screening mammogram. No current complaints. COMPARISON: 2023 TECHNIQUE: Bilateral CC and MLO views. FINDINGS: Scattered fibroglandular densities bilaterally. No suspicious focal mass, asymmetry, calcifications, or architectural distortion. No evidence of malignancy. Vascular calcification MM/MM scr BI tomosynthesis [id number] IMPRESSION: DENSITY: There are scattered areas of fibroglandular density. BI-RADS: 2 - Benign. FOLLOW UP: 1 Year Follow-up Recommend return to annual screening mammography.
== END 2024-11-23 10:33 | disposition home or self-care (01) ==
PROVIDERS: PCP Nurse Practitioner; Visit Provider Nurse Practitioner
DX: Z12.31 Encounter for screening mammogram for malignant neoplasm of breast (principal); R92.323 Mammographic fibroglandular density, bilateral breasts; R92.1 Mammographic calcification found on diagnostic imaging of breast
CPT/HCPCS: 77063; 77067

== ENCOUNTER → 2025-01-18 14:51 | Outpatient (BNVA) | payer MEDICARE, SELFPAY | PROVIDERS: PCP Nurse Practitioner; Visit Provider Nurse Practitioner | DX: I10 Essential (primary) hypertension (principal); E55.9 Vitamin D deficiency, unspecified | CPT/HCPCS: 80053; 80061; 82306; 82607; 84443 ==

== ENCOUNTER → 2025-06-25 11:51 | Outpatient (BNVA) | payer MEDICARE, SELFPAY | PROVIDERS: PCP Nurse Practitioner; Visit Provider Emergency Medicine | DX: S49.91XA Unspecified injury of right shoulder and upper arm, initial encounter (principal); S42.291A Other displaced fracture of upper end of right humerus, initial encounter for closed fracture; X58.XXXA Exposure to other specified factors, initial encounter | CPT/HCPCS: 73030 ==

== ENCOUNTER → 2025-06-27 13:59 | Outpatient (BNVA) | payer MEDICARE, SELFPAY | PROVIDERS: PCP Nurse Practitioner; Visit Provider Orthopaedic Surgery | DX: S42.291A Other displaced fracture of upper end of right humerus, initial encounter for closed fracture (principal); W18.39XA Other fall on same level, initial encounter | CPT/HCPCS: 99204 ==

== ENCOUNTER → 2025-07-04 14:34 | Outpatient (BNVA) | payer MEDICARE, SELFPAY | PROVIDERS: PCP Nurse Practitioner; Visit Provider Orthopaedic Surgery | DX: S42.291D Other displaced fracture of upper end of right humerus, subsequent encounter for fracture with routine healing (principal); X58.XXXD Exposure to other specified factors, subsequent encounter | CPT/HCPCS: 73060; 99213 ==

== ENCOUNTER → 2025-07-05 12:25 | Outpatient (BNVA) | payer MEDICARE, SELFPAY | PROVIDERS: PCP Nurse Practitioner; Visit Provider Nurse Practitioner | DX: Z01.811 Encounter for preprocedural respiratory examination (principal); I10 Essential (primary) hypertension; J98.4 Other disorders of lung | CPT/HCPCS: 71046; 80053; 81000; 85025 ==

== ENCOUNTER 2025-07-06 13:55 | Observation (INO) | payer MEDICARE, SELFPAY ==
[2025-07-06] VITALS (20 sets, daily range): BP systolic 104–197; BP diastolic 69–106; PULSE 74–90; RESP 16–19; TEMP 36.2–36.5; O2SAT 90–100; BMI 35.0; BMI 34.7
--- NOTE | 2025-07-06 09:06 | ECG_ITS ---
[facility] Test Date: 2025-07-06 Pat Name: Michelle Escoto Department: Room: Gender: Female Compressor Technician: : 1955 Requested By: Matt Guaman Order Number: [id number] Kentrell MD: Asia Cisse M.D. Measurements Intervals [place] Rate: 95 P: 0 HI: 0 QRS: 57 QRSD: 86 T: 55 QT: 369 QTc: 465 Interpretive Statements ATRIAL FIBRILLATION MINIMAL ST DEPRESSION [0.025+ mV ST DEPRESSION] ABNORMAL RHYTHM ECG Compared to ECG 02/18/2024 10:28:15 ST (T wave) deviation now present Atrial abnormality no longer present T-wave abnormality no longer present Electronically Signed On 07-06-2025 22:59:14 CDT by Asia Cisse M.D. [email or web address]
--- NOTE | 2025-07-06 10:06 | P.ANESASSM_ITS ---
Pre-Anesthetic Assessment Height/Weight: Height 5 ft 4 in Weight 204 lb O2 Del Method Room Air 07/06/25 09:17 Preop Diagnosis: Proximal humerus fracture Operation Date: 07/06/25 12:15 Proposed Procedures p RIGHT ORIF Proximal Humerus(Right) - Chon Dillon MD Was Beta Gia taken within 24 hours: N/A Was Clonidine taken within 24 hours: N/A Last intake: Intake Last Liquid Date 07/05/25 Last Liquid Time 20:00 Last Solid Date 07/05/25 Last Solid Time 20:00 Social No alcohol and No tobacco Exam alert, oriented x 3, clear to auscultation bilaterally and regular rate & rhythm Airway Submandibular: within normal limits Cervical ROM: within normal limits Mallampati: Class III Dentition: full Anesthetic Plan ASA status: 3 Anesthesia: General and Regional (specify below) Other: No prior issues with anesthesia NPO since yesterday evening History of hypertension on lisinopril and metoprolol Prior heart valve replacement, unsure if it was mitral or aortic valve. This was in 2016. Patient denies any SOB or chest pain currently Chronic A-fib, on chronic Eliquis last taken Friday morning Labs from yesterday reviewed acceptable for procedure today, CR 1.2 which appears to be about baseline Plan for general anesthesia with postoperative nerve block once motors are checked Medications/Allergies Home Medications ?Medication ?Instructions ?Recorded ?Confirmed ?Last Taken ?Type potassium chloride 20 mEq 20 meq PO QDAY take with Las ix #90 12/15/19 07/06/25 07/05/25 Rx tablet,extended release tabs apixaban 5 mg tablet (Eliquis) 5 mg PO BID #60 tabs 07/06/25 07/03/25 07:00 Rx Held on 07/05/25. Instructions: Holding since 07/03/25 PM dose estradiol 0.01% (0.1 mg/gram) 1 appful vaginal .weekly #42.5 01/18/25 07/06/25 Unknown Rx vaginal cream (Estrace) grams furosemide 40 mg tablet 40 mg PO QAM PRN swelling #9 0 tabs 01/18/25 07/06/25 07/05/25 Rx lisinopril 20 mg tablet 20 mg PO QDAY #90 tabs 05/06 /25 10/22/25 10/21/25 Rx metoprolol succinate 25 mg 12.5 mg (1/2 x 25 mg) PO GILBERTO OVALLES #90 01/18/25 07/06/25 07/06/25 Rx tablet,extended release 24 hr tabs (Toprol XL) Allergies Allergy/AdvReac Type Severity Reaction Status Date / Time No Known Allergies Allergy Verified 07/05/25 20:33 Current Medications Generic Name Dose Route Start Last Admin Trade Name Freq PRN Reason Stop Dose Admin Sodium Chloride 1,000 mls @ 30 mls/hr 07/06/25 09:15 07/06/25 09:40 Sodium Chloride 0.9% IV 07/07/25 09:14 30 mls/hr .Q24H MELODY Administration PFSH Anesthesia Medical History Lumbar compression fracture Obesity (BMI 30.0-34.9) AF (atrial fibrillation) ASD (atrial septal defect) Essential (primary) hypertension Situational anxiety Pulmonary hypertension, unspecified Surgical History Hx of LASIK 2010 both eyes [place], [place] History of open reduction and internal fixation (ORIF) procedure Left ankle 2016 History of heart valve repair 05/21/2017 Family History Brother Heart disease Sister Thyroid disease Lymphoma Daughter Melanoma Social History Smoking and tobacco/nicotine status: never used tobacco/nicotine Alcohol intake: current Alcohol intake frequency: holidays/special occasions only Substance/Drug Use: never Adopted: No Caregiver/support person: No Lives independently: Yes Household members: spouse Housing: House Marital status: Number of children: 3 Number of grandchildren: 6 Highest education level completed: High School Graduate service: No Current occupational status: unemployed Current occupational exposures/hazards: No Pets and animals: No Sexually active: Yes Do you think of yourself as: Straight/Heterosexual Current gender identity: Female
--- NOTE | 2025-07-06 10:35 | W.PM.OPSUD ---
Surgery/Procedure H&P Update DATE OF PROCEDURE: July 06, 2025 DATE H&P PERFORMED: 07/04/25 H&P UPDATE INFORMATION: I have reviewed H&P completed within last 30 days, I have examined patient prior to procedure and No changes to prior documentation PREOP DIAGNOSIS: Proximal humerus fracture PLANNED PROCEDURE: Operation Date: 07/06/25 12:15 Proposed Procedures p RIGHT ORIF Proximal Humerus(Right) - Chon Dillon MD
[2025-07-06] MEDS: ceFAZolin 2,000 mg SDV 2000 MG IVP ×2 (10:57→18:08)
--- NOTE | 2025-07-06 13:29 | XR_ITS ---
WS: [id number] Right shoulder, C-arm fluoroscopy views, 07/06/2025 Clinical Data: OR PICS Comparison: Right shoulder, 06/25/2025 Findings: Dr. Dillon inserted orthopedic pins to reduce the comminuted fracture of the right humeral head and neck. XR/XR shoulder RT min 2V* [id number] Impression: Internal fixation of proximal right humeral fracture.
--- NOTE | 2025-07-06 13:36 | ANES.PROC ---
Anesthesia Procedures Procedure/Date: 07/06/25 Right interscalene peripheral nerve block for postoperative pain control Nerve Block ^: Nerve Block 1: Main Anesthesia: general anesthesia Time Out Performed: Yes Consent: requested by attending/covering physician and from patient Laterality: Right Nerve block location: interscalene Anesthesia monitors applied: pulse oximetry, EKG, BP cuff and oxygen Nerve block position: supine Anesthetic Used: ropivicaine 0.5% Amount of anesthesia used (mL): 30 Ultrasound used to: recognize landmarks Nerve Stimulator Used?: Yes Interscalene/Femoral BLK: other needle (pjunk 4inch) Injection: neg aspiration of heme Patient Tolerated Procedure: well Complications: none Additional Comments: Decadron 4 mg added to block
--- NOTE | 2025-07-06 14:04 | P.OP_ITS ---
Operative Report Date of procedure: July 06, 2025 Surgeon: Chon Dillon MD Procedure: Preoperative diagnosis: Proximal right humerus fracture Postoperative diagnosis: Same Procedure: Open reduction with internal fixation of right proximal humerus fracture Surgeon: Chon Dillon MD Waiter/Waitress Informal: ALEX Goldberg's assistance was necessary for positioning the patient, assistance during the procedure, closing the wound, dressing placement. Anesthesia: General With postoperative scalene block EBL: 150 cc Indications: Kathleen is a 70-year-old white female who approximately 2 weeks ago fell landing on outstretched right arm. She injured her shoulder. She eventually was seen in the emergency room where x-rays demonstrated a proximal humerus fracture. CT scan was also obtained demonstrating some comminution of the proximal humeral head with a large cortical defect on the lateral aspect of the distal fragment. Initially she was treated which is gravity traction and arm sling however after 2 weeks it this did not improve. At this time she would more likely benefit from an endoprosthesis however due to the fracture pattern and the large wedge fracture on the lateral side of was felt that we needed to try and reduce this allowed to heal to save bone stock for potential total joint versus hemiarthroplasty in the future. Lengthy discussion was had with she and her and they are agreeable after describing what needed to take place as well as what would need to be done at the time of surgery to try and reduce this. All risk benefits treatment alternatives been discussed and they are agreeable. Procedure: After obtaining consent patient taken the operative room placed the op table supine position general anesthetic administered. Once Konesky was achieved patient was placed up in the beachchair position and right arm and shoulder were prepped and draped usual fashion. After surgical timeout standard anterior approach to the shoulder was made with a #10 blade. Sharp dissect taken down to subcutaneous tissue electrocautery used to hemostasis. And blunt and sharp fashion with Metzenbaum scissors dissection was taken on down to the junction between the deltoid and the pectoralis major. Cephalic vein was retracted superior laterally with the deltoid with deep retractors. Once down deeper in the shoulder by a sweeping the area adhesions were removed. Subsequently large hematoma was removed from the previous fracture. Attempts were made to manipulate this fracture was unsuccessful therefore a portion of the subscapularis was taken down to expose the lower portion of the joint and humeral head. Using a Santillan elevator this is placed between the 2 fracture fragments and uses a labral to help manipulate the fracture fragments back to position. Subsequently interoperative fluoroscopy demonstrated adequate reduction of this. At this point incision was made over the superior aspect of the shoulder directly off the lateral side of the acromion. Sharp dissection taken down down to subcutaneous tissues electrocautery used and hemostasis. Electrocautery was used to go on down through the deltoid fibers into the subacromial space. Once trocar over the proximal humerus can be identified to 3 mm flexible rods were then used to drive down through the head into the shaft to hold this in place. Rods were selected and had a hook bent on the proximal end and then cut off to appropriate length. Drill holes placed anteriorly towards lateral aspect of the humeral head and the first wire was bent for 3 point contact and then placed down through this drill hole and guided under fluoroscopy into the intramedullary canal until down and could be implanted all the way. A second pin was then fashioned in the similar fashion that to be in a 3 mm jazmín. It was then put through the drill hole in the posterior lateral aspect of the humeral head. This too was guided by fluoroscopy down into the intramedullary canal and then driven all the way down. Interoperative flu oroscopy demonstrated adequate reduction of the fracture at this time. All wounds were then washed and closed in a sterile irrigation. Deep structures i.e. the subscapularis repaired #5 Ethibond horizontal mattress sutures. The remainder of tissue was allowed to fall together and subcutaneous tissues were reapproximated 0 Vicryl interrupted suture skin closed with skin toni. The superior incision also had been washed the deltoid was pair with 0 Vicryl [id number] sutures. Subcutaneous tissue reapproximated 0 Vicryl interrupted sutures and skin was closed with skin tnoi. Wounds are clean and dry dressed with Xeroform gauze sterile gauze dressing ABDs and adhesive tape. Patient had her arm placed in an abduction pillow sling. She is awakened and transferred to cover room in stable condition
--- NOTE | 2025-07-06 14:12 | ANE.PACU2 ---
Inpatient post-anesthesia follow up: Airway intact: Yes Vital signs: Temperature 98.0 F Pulse Rate 110 Respiratory Rate 18 Blood Pressure 137/67 Pulse Oximetry 94 Oxygen Delivery Me thod Room Air Oxygen Flow Rate 2 Fraction of Inspir ed Oxygen Hydration adequate: Yes Nausea and vomiting: No Pain level: 1 Mental status: Baseline
[2025-07-06] MEDS: ondansetron 2 mg/ML SDV 2 mL 4 MG IVP (15:27)
[2025-07-07] MEDS: ceFAZolin 2,000 mg SDV 2000 MG IVP (02:48)
[2025-07-07 07:52] VITALS: BP 152/75; PULSE 99; RESP 18; TEMP 36.7; O2SAT 95
[2025-07-07] MEDS: HYDROcodone-acetaminophen 5-325 mg Tablet PO (08:56)
[2025-07-07 11:25] VITALS: BP 137/67; PULSE 110; RESP 18; TEMP 36.7; O2SAT 94
--- NOTE | 2025-07-07 11:32 | PM.DCS ---
Discharge Providers Date of Admission: 07/06/25 13:55 Date of Discharge: July 07, 2025 Attending Provider at Admission: Chon Dillon MD Attending Provider at Discharge: Chon Dillon MD Primary Care Provider: WALDEMAR Amin Reason for Visit Reason for Visit: S42.201A Brief History: Patient will 2 weeks ago had a fall with a proximal humerus fracture. Attempts were made for conservative measures to try and allow this to fall back in place with gravity however no improvement of positioning of the fracture fragments were achieved. Therefore at this time open reduction internal fixation was offered to the patient to try and realign the proximal humerus with the humeral shaft. All risk benefits treatment terms were discussed with them and they are agreeable to this at this time. They were also informed that she may need to have a shoulder replacement in the future. Patient was then scheduled for surgery on 07/06/2025. Hospital Course Hospital Course On 07/06/2025 and underwent the above-stated procedure. She had an open reduction with internal fixation of her proximal right humerus fracture. She tolerated this quite well. She was held overnight for pain control. She has had no episodes of difficulty with pain other than initially after surgery. All is been progressing well. She would like to go home at this time. Physical Exam Narrative: Patient is laying in bed resting comfortably. Dressings are clear. Patient is in her abduction pillow and sling which is fitted appropriately. She is neurovascular intact in her distal digits of her right hand. Discharge Data Studies Completed and Pending Completed Studies During Hospitalization Category Date Time Status XR shoulder RT min 2V* [id number] Routine Exams 07/06/25 13:29 Completed Radiology Impressions Shoulder X-Ray 07/06/25 13:29 Impression: Internal fixation of proximal right humeral fracture. Vitals Last Vital Signs Temp 98.0 F 07/07/25 11:25 Pulse 110 H 07/07/25 11:25 Resp 18 07/07/25 11:25 BP 137/67 07/07/25 11:25 Pulse Ox 94 07/07/25 11:25 O2 Del Method Room Air 07/07/25 11:25 O2 Flow Rate 2 07/06/25 17:20 Discharge Plan Discharge Patient Disposition: Home Condition: Stable Prescriptions: New hydrocodone-acetaminophen 5-325 mg tablet 1 tab PO Q6H PRN (Reason: pain) Qty: 30 0RF Continued Eliquis 5 mg tablet 5 mg PO BID Qty: 60 5RF estradiol [Estrace] 0.01 % (0.1 mg/gram) cream 1 appful vaginal .weekly Qty: 42.5 5RF furosemide 40 mg tablet 40 mg PO QAM PRN (Reason: swelling) Qty: 90 1RF lisinopril 20 mg tablet 20 mg PO QDAY Qty: 90 1RF metoprolol succinate [Toprol XL] 25 mg tablet extended release 24 hr 12.5 mg PO DAILY Qty: 90 1RF potassium chloride 20 mEq tablet extended release 20 meq PO QDAY Qty: 90 0RF Discharge Order = DC NOW: Discharge Order (Routine); Ordered 07/07/25 Ordered By: Chon Dillon Referrals: Chon Dillon MD [Physician, Orthopedics] - 07/22/25 9:15 am Discharge Diet: Advance as tolerated Discharge Activity: Limit activity as instructed Patient Instructions: Acute Wound Care (DC), Opioid Safety, Post Anesthesia Care, Patient Portal & Janice Instructions Activity Restrictions/Additional Instructions: Sleep with head of the bed elevated, in a reclined position May change the dressings in 4 days May shower in 4 days and allow wound to get wet Wear abduction pillow and sling at all times. May remove for showering but just hold arm by your side Call with any concerns Discharge Attestations Time Spent in Discharge Care*: less than 30 min Quality Metrics Clinical Quality Measures [ No reported AMI, CVA or VTE this stay] Coding Level of Care Code Acute Code for Chg Fwumu
== END 2025-07-07 12:28 | disposition home or self-care (01) ==
LOC: MEDSURG 13:57
PROVIDERS: Admitting Provider Orthopaedic Surgery; PCP Nurse Practitioner; Visit Provider Orthopaedic Surgery
PROC: (CPT 23615; principal; 2025-07-06 12:15)
DX: S42.201A Unspecified fracture of upper end of right humerus, initial encounter for closed fracture (principal); W19.XXXA Unspecified fall, initial encounter; I10 Essential (primary) hypertension; Z95.1 Presence of aortocoronary bypass graft; Z79.01 Long term (current) use of anticoagulants; E66.9 Obesity, unspecified; Z68.34 Body mass index [BMI] 34.0-34.9, adult; I48.91 Unspecified atrial fibrillation; F41.9 Anxiety disorder, unspecified
CPT/HCPCS: 23615; 73030; 76000; 82607; 82728; 83550; 93005; 97161; 97165; C1713; G0378; J0131; J0690; J1100; J1171; J1885; J2405; J2704; J3010; J3490; J7030; J9999

== ENCOUNTER → 2025-07-22 09:15 | Outpatient (BNVA) | payer MEDICARE, SELFPAY | PROVIDERS: PCP Nurse Practitioner; Visit Provider Orthopaedic Surgery | DX: S42.291D Other displaced fracture of upper end of right humerus, subsequent encounter for fracture with routine healing (principal); X58.XXXD Exposure to other specified factors, subsequent encounter | CPT/HCPCS: 73030; 99024 ==

== ENCOUNTER → 2025-08-04 11:37 | Outpatient (BNVA) | payer MEDICARE, SELFPAY | PROVIDERS: PCP Nurse Practitioner; Visit Provider Orthopaedic Surgery | DX: S42.291D Other displaced fracture of upper end of right humerus, subsequent encounter for fracture with routine healing (principal); X58.XXXD Exposure to other specified factors, subsequent encounter | CPT/HCPCS: 73030; 99024 ==

== ENCOUNTER → 2025-08-19 10:42 | Outpatient (BNVA) | payer MEDICARE, SELFPAY | PROVIDERS: PCP Nurse Practitioner; Visit Provider Orthopaedic Surgery | DX: S42.291D Other displaced fracture of upper end of right humerus, subsequent encounter for fracture with routine healing (principal); X58.XXXD Exposure to other specified factors, subsequent encounter | CPT/HCPCS: 73060; 99024 ==

== ENCOUNTER → 2025-08-26 12:24 | Outpatient (BNVA) | payer MEDICARE, SELFPAY | PROVIDERS: PCP Nurse Practitioner; Visit Provider Nurse Practitioner | DX: G47.00 Insomnia, unspecified (principal); I10 Essential (primary) hypertension; E66.9 Obesity, unspecified | CPT/HCPCS: 80053; 80061; 84443; 85025 ==

== ENCOUNTER → 2025-09-01 10:41 | Outpatient (BNVA) | payer MEDICARE, SELFPAY | PROVIDERS: PCP Nurse Practitioner; Visit Provider Orthopaedic Surgery | DX: S42.291D Other displaced fracture of upper end of right humerus, subsequent encounter for fracture with routine healing (principal); X58.XXXD Exposure to other specified factors, subsequent encounter | CPT/HCPCS: 73060; 99024 ==

== ENCOUNTER 2025-09-14 07:59 | Day surgery (SDC) | payer MEDICARE, SELFPAY ==
[2025-09-14] VITALS (10 sets, daily range): BP systolic 107–153; BP diastolic 54–85; PULSE 70–88; RESP 16–18; TEMP 36.3–36.6; O2SAT 96–100; BMI 34.3
--- NOTE | 2025-09-14 08:57 | W.PM.OPSUD ---
Surgery/Procedure H&P Update DATE OF PROCEDURE: September 14, 2025 DATE H&P PERFORMED: 09/01/25 H&P UPDATE INFORMATION: I have reviewed H&P completed within last 30 days, I have examined patient prior to procedure and No changes to prior documentation PREOP DIAGNOSIS: Retained orthopedic hardware right proximal humerus PLANNED PROCEDURE: Operation Date: 09/14/25 09:30 Proposed Procedures p RIGHT Shoulder Excision Flexible Rods of Proximal Humerus 71040 S42.291D(Right) - Chon Dillon MD
--- NOTE | 2025-09-14 09:02 | ANES.PREANE2 ---
Pre-Anesthetic Assessment Height/Weight: Height 1.63 m Weight 90.718 kg Temp Pulse Resp BP Pulse Ox O2 Del Method 97.4 F L 88 17 153/85 98 Room Air 09/14/25 08:16 09/14/25 08:16 09/14/25 08:16 09/14/25 08:16 09/14/25 08:16 09/14/25 08:16 Preop Diagnosis: Retained orthopedic hardware right proximal humerus Operation Date: 09/14/25 09:30 Proposed Procedures p RIGHT Shoulder Excision Flexible Rods of Proximal Humerus 79627 S42.291D(Right) - Chon Dillon MD Familial anesthetic complications: none Was Beta Gia taken within 24 hours: N/A Was Clonidine taken within 24 hours: N/A Last intake: Intake Last Liquid Date 09/13/25 Last Liquid Time 22:30 Last Solid Date 09/13/25 Last Solid Time 22:30 Social No alcohol and No tobacco Exam alert, oriented x 3, clear to auscultation bilaterally and regular rate & rhythm Airway Mallampati: Class II Dentition: full CV/HEM Atrial Fibrillation and Hypertension Said she had a hole in her heart repaired at age 15 Anesthetic Plan ASA status: 3 Anesthesia: General and Regional (specify below) Risk of > 500 ml blood loss (7ml/kg in children): No Medications/Allergies Home Medications ?Medication ?Instructions ?Recorded ?Confirmed ?Last Taken ?Type potassium chloride 20 mEq 20 meq PO QDAY take with Lasix #90 12/15/19 09/13/25 09/12/25 Rx tablet,extended release tabs furosemide 40 mg tablet 40 mg PO QAM PRN swelling #90 tabs 07/10/25 09/13/25 09/12/25 Rx apixaban 5 mg tablet (Eliquis) 5 mg PO BID #180 tabs 08/25/25 09/13/25 09/11/25 Rx estradiol 0.01% (0.1 mg/gram) 1 appful vaginal .weekly #127.5 08/25/25 09/13/25 09/06/25 Rx vaginal cream (Estrace) grams hydroxyzine pamoate 25 mg capsule 25 mg PO .at bedtime #90 caps 08/25/25 09/13/25 09/10/25 Rx lisinopril 30 mg tablet 30 mg PO QDAY #90 tabs 08/25/25 09/13/25 09/13/25 Rx spironolactone 25 mg tablet 25 mg PO DAILY #90 tabs 08/25/25 09/13/25 Unknown Rx metoprolol succinate 25 mg 12.5 mg PO QPM 09/13/25 09/13/25 09/12/25 History tablet,extended release 24 hr (Toprol XL) Allergies Allergy/AdvReac Type Severity Reaction Status Date / Time No Known Allergies Allergy Verified 09/01/25 10:50 Current Medications Generic Name Dose Route Start Last Admin Trade Name Freq PRN Reason Stop Dose Admin Sodium Chloride 1,000 mls @ 30 mls/hr 09/14/25 08:15 09/14/25 08:32 Sodium Chloride 0.9% IV 09/15/25 08:14 30 mls/hr .Q24H MELODY Administration PFSH Anesthesia Medical History Lumbar compression fracture Obesity (BMI 30.0-34.9) AF (atrial fibrillation) ASD (atrial septal defect) Essential (primary) hypertension Situational anxiety Pulmonary hypertension, unspecified Surgical History Hx of LASIK 2010 both eyes [place], [place] History of open reduction and internal fixation (ORIF) procedure Left ankle 2017 History of heart valve repair 05/21/2017 Family History Brother Heart disease Sister Thyroid disease Lymphoma Daughter Melanoma Social History Smoking and tobacco/nicotine status: never used tobacco/nicotine Alcohol intake: current Alcohol intake frequency: holidays/special occasions only Substance/Drug Use: never Adopted: No Caregiver/support person: No Lives independently: Yes Household members: spouse Housing: House Marital status: Number of children: 3 Number of grandchildren: 6 Highest education level completed: High School Graduate service: No Current occupational status: unemployed Current occupational exposures/hazards: No Pets and animals: No Sexually active: Yes Do you think of yourself as: Straight/Heterosexual Current gender identity: Female Anesthesia Procedures Nerve Block Nerve Block 1: Main Anesthesia: general anesthesia Time Out Performed: Yes Consent: requested by attending/covering physician, from patient, from other, risks and benefits reviewed and patient agrees to proceed Nerve block location: supraclavicular (R) Anesthesia monitors applied: pulse oximetry, EKG, BP cuff and oxygen Nerve block position: semi sitting Anesthetic Used: ropivicaine 0.5% (30 ml) and with decadron (4 mg) Ultrasound used to: recognize landmarks, visualize and ID brachial plexus and in supraclavicular region Nerve Stimulator Used?: No Interscalene/Femoral BLK: 4 stimuplex 21 g needle used for position and inplane approach, visualize local anesthetic spread and no vascular puncture identified Injection: neg aspiration of heme Patient Tolerated Procedure: well and no complications Complications: none
[2025-09-14] MEDS: ceFAZolin 2,000 mg SDV 2000 MG IVP (09:20)
--- NOTE | 2025-09-14 10:10 | P.OP_ITS ---
Operative Report Date of procedure: September 14, 2025 Surgeon: Chon Dillon MD Procedure: Preoperative diagnosis: Retained hardware right proximal humerus Postoperative diagnosis same Procedure: Removal of retained orthopedic hardware right humerus Surgeon: Chon Dillon MD Anesthesia: General With preoperative skin block Indications: Param is a 70-year-old white female who has been treated over the last several months for a proximal right humerus fracture. She had surgical reduction with flexible rods placed down superiorly to hold fracture in place. Fractures gone on to heal at this point now on time for the removal of the hardware. All risk benefits treatment alternatives were discussed they are agreeable to this at this time. Procedure: After obtaining consent patient had preoperative scalene block. Donna ent was then taken the operative room placed in the op table supine position and general anesthetic administered. Once [place] was achieved patient placed up in the beachchair position on a regular surgical table. Right shoulder and arm were prepped and draped in usual fashion. After surgical timeout previous anterior lateral incision off the shoulder had scar tissue sharply debrided. Dissection taken down down to subcutaneous tissue to the lateral deltoid. Deltoid was removed from the anterior acromion with electrocautery. Significant scarring of the bursa and subacromial space was identified. Time was taken with electrocautery a [place] elevator and digital palpation to break up all scar tissue to finally get down to the rotator cuff. Once to the rotator cuff identification of the flexible rods as able to be done. Using a pin clamp from the flexible jazmín set each 1 of these was clamped and a small mallet was used to tap them up and out of the shoulder without any difficulties. Shoulders washed was copious alana of sterile irrigation. Deltoid was reapproximated 0 Vicryl [id number] sutures. Subcutaneous tissue reapproximated 0 Vicryl interrupted sutures. Skin was closed with skin toni. Wounds are clean and dry dressed with Xeroform gauze sterile gauze dressing and Medipore tape. Patient was placed in an arm sling awakened transferred recovery in stable condi tion
--- NOTE | 2025-09-14 11:30 | ANE.PACU2 ---
Inpatient post-anesthesia follow up: Airway intact: Yes Vital signs: Temperature 97.8 F Pulse Rate 70 Respiratory Rate 16 Blood Pressure 123/67 Pulse Oximetry 99 Oxygen Delivery Me thod Room Air Oxygen Flow Rate 6 Fraction of Inspir ed Oxygen Hydration adequate: Yes Nausea and vomiting: No Pain level: 1 Mental status: Baseline
== END 2025-09-14 11:30 | disposition home or self-care (01) ==
PROVIDERS: PCP Nurse Practitioner; Visit Provider Orthopaedic Surgery
PROC: (CPT 20680; principal; 2025-09-14 09:10)
DX: T84.84XA Pain due to internal orthopedic prosthetic devices, implants and grafts, initial encounter (principal); Y70.2 Prosthetic and other implants, materials and accessory anesthesiology devices associated with adverse incidents; I48.91 Unspecified atrial fibrillation; I10 Essential (primary) hypertension; E66.9 Obesity, unspecified; Z68.34 Body mass index [BMI] 34.0-34.9, adult; I27.20 Pulmonary hypertension, unspecified; Q21.10 Atrial septal defect, unspecified; F41.9 Anxiety disorder, unspecified
CPT/HCPCS: 20680; J0690; J1100; J2371; J2405; J2704; J2795; J3010; J3490; J7030; J9999